=== PATIENT | female | born 1995 | race Hispanic/Latino ===

== ENCOUNTER 2019-01-19 19:58 | Emergency (ER) | payer SELFPAY ==
[2019-01-19 20:27] LABS: #Eosinphils 0.4 thou/uL (0.0-0.7); #Lymphocytes 2.7 thou/uL (1.20-3.40); #Monocytes 0.3 thou/uL (0.11-0.59); #Neutrophils 5.2 thou/uL (1.40-6.50); %Basophils 0.6 % (0.0-1.0); %Eosinophils 4.1 % (0.0-10.0); %Lymphocytes 31.6 % (21.0-51.0); %Monocytes 3.1 % (0.0-10.0); %Neutrophils 60.7 % (42.0-75.0); Hemoglobin 12.5 g/dL (12.0-16.0); Mean Corpuscular HGB CONC 33.7 g/dL (32.0-36.0); Mean Corpuscular Hemoglobin 27.8 pg (27.0-31.0); Mean Corpuscular Volume 82.5 fL (78.0-98.0); Mean Platelet Volume 8.4 fL (7.4-10.4); Platelet Count 324 thou/uL (130-400); RBC Distribution Width 11.9 % (11.5-14.5); White Blood Cell (WBC) Count 8.6 thou/uL (4.8-10.8)
[2019-01-19 20:48] LABS: ALT (SGPT) 450 U/L (8-55); AST (SGOT) 495 U/L (5-34); Albumin 4.5 g/dL (3.5-5.0); Alkaline Phosphatase 96 U/L (40-150); Anion Gap 17 mmol/L (10-20); BUN (Urea Nitrogen) 8 mg/dL (7.0-18.7); Bilirubin, Total 0.3 mg/dL (0.2-1.2); Calc. Creatinine Clearance 0 mL/min (70-130); Calcium 9.8 mg/dL (7.8-10.44); Carbon Dioxide 22 mmol/L (22-29); Chloride 102 mmol/L (98-107); Estimated GFR-MDRD Greater than 90; Globulin 3.7 g/dL (2.4-3.5); Glucose 114 mg/dL (70-105); Potassium 3.8 mmol/L (3.5-5.1); Protein, Total 8.2 g/dL (6.0-8.3); Sodium 137 mmol/L (136-145)
[2019-01-19] MEDS ORDERED: HYDROcodone/Acetaminophen 10/325 mg Tablet ONE (20:48)
[2019-01-19] MEDS ORDERED: Ketorolac Tromethamine 30 MG/ML VIAL ONE (20:48)
[2019-01-19 20:50] LABS: BHCG - Serum Negative (NEGATIVE); Pregs Control Background? CLEAR/WHITE (CLR/WHITE); Pregs Control Bar Appear? YES (CONTROL BAR)
[2019-01-19 21:06] LABS: Bilirubin Negative (Negative); Blood, Urine Large (Negative); Clarity CLEAR (Clear); Glucose, Urine (Dipstick) Negative (Negative); Leukocyte Negative (Negative); Nitrite Negative (Negative); Protein, Urine (Dipstick) Trace mg/dL (Neg-Trace); Specific Gravity, Urine 1.024 (1.002-1.036); Urobilinogen 0.2 mg/dL (0.2-1.0); pH, Urine 5.5 (5.0-9.0)
[2019-01-19 21:07] LABS: Bacteria/HPF None Seen HPF (None Seen); Hyaline Casts/LPF 0-3 HYALINE CAST LPF (0-3 Hyaline); Pathc Cast-AUWi Flag 0.54 (0-2.49); RBC/HPF GREATER THAN 50-TNTC HPF (0-3); Squamous Epithelial 0-3 HPF (0-3); WBC/HPF 0-3 HPF (0-3)
[2019-01-19 21:09] LABS: Pregnancy Test - Urine (BHCG) Negative (Negative); Pregu Control Background? CLEAR/WHITE (CLR/WHITE); Pregu Control Bar Appear? YES (CONTROL BAR); Specific Gravity 1.024 (1.002-1.036)
== END 2019-01-19 21:28 | disposition home or self-care (01) ==
LOC: ERS 19:58
DX: R10.9 Unspecified abdominal pain (principal); R79.89 Other specified abnormal findings of blood chemistry
CPT/HCPCS: 80053; 81003; 81015; 81025; 83690; 84703; 85025; 96374; J1885

== ENCOUNTER 2019-01-21 06:44 | Outpatient (CLI) | payer OTHER ==
--- NOTE | 2019-01-21 07:41 | ULT ---
Gallbladder ultrasound: Multiple grayscale images of right upper quadrant obtained according to protocol. INDICATIONS: Elevated liver function test FINDINGS: No evidence of gallstones. Gallbladder wall thickness is normal. Technologist describes trace echogen ic sludge within the gallbladder. Common bile duct is normal caliber. Liver is echogenic consistent with fatty infiltration. Pancreas is mostly obscured but appears unremarkable as visualized. Right kidney is imaged and appears unremarkable. IMPRESSION: Possible echogenic sludge within the gallbladder. Fatty infiltration of liver.
== END 2019-01-21 06:45 | disposition home or self-care (01) ==
LOC: BICULT 06:44
PROVIDERS: ATTEND Advanced Practice Midwife
DX: R74.8 Abnormal levels of other serum enzymes (principal); K76.0 Fatty (change of) liver, not elsewhere classified
CPT/HCPCS: 76705

== ENCOUNTER 2020-05-09 19:35 | Emergency (ER) | payer SELFPAY ==
--- NOTE | 2020-05-09 20:45 | RAD ---
XR Chest 1 View Portable HISTORY: Cough, chest pain COMPARISON: None FINDINGS: The heart size is normal. The lungs are without focal areas of consolidation, pneumothorax or pleural effusions. IMPRESSION: No radiographic evidence of acute cardiopulmonary process.
[2020-05-09 20:51] LABS: Hemoglobin 6.8 g/dL (12.0-16.0); Mean Corpuscular HGB CONC 34.8 g/dL (32.0-36.0); Mean Corpuscular Hemoglobin 27.3 pg (27.0-31.0); Mean Corpuscular Volume 78.5 fL (78.0-98.0); RBC Distribution Width 19.6 % (11.5-14.5); White Blood Cell (WBC) Count 14.4 thou/uL (4.8-10.8)
[2020-05-09 20:53] LABS: ALT (SGPT) 101 U/L (8-55); AST (SGOT) 94 U/L (5-34); Albumin 3.4 g/dL (3.5-5.0); Alkaline Phosphatase 73 U/L (40-110); Anion Gap 21 mmol/L (10-20); BUN (Urea Nitrogen) 72 mg/dL (7.0-18.7); Bilirubin, Total 2.6 mg/dL (0.2-1.2); Calc. Creatinine Clearance 0 mL/min (70-130); Calcium 7.5 mg/dL (7.8-10.44); Carbon Dioxide 16 mmol/L (22-29); Chloride 102 mmol/L (98-107); Estimated GFR-MDRD 19; Globulin 3.6 g/dL (2.4-3.5); Glucose 191 mg/dL (70-105); Potassium 3.7 mmol/L (3.5-5.1); Sodium 135 mmol/L (136-145)
[2020-05-09 20:57] LABS: Platelet Count 2 thou/uL (130-400); Reflex for Review?? YES
[2020-05-09 21:01] LABS: Anisocytosis SLIGHT = 6-15 cells (100X) (0-5/hpf); Band 16 % (5-11); Eosinophils 1 % (0-10); Lymphocytes 37 % (21-51); MDiff Complete? YES; Monocytes 5 % (0-10); Myelocyte 1 % (0-0); Neutrophil 40 % (42-75); Nucleated RBC 4 % (0); Platelet Morphology Comment Appears Decreased; Polychromasia SLIGHT = 2-3 cells (100X) (0-2/hpf); Schistocytes MARKED= >16 cells (100X) (0-1/hpf); Spherocytes SLIGHT = 1-5 cells (100X) (None Seen)
[2020-05-09 21:49] LABS: Acetaminophen Less than 6.0 mcg/mL (10.0-30.0); Alcohol Less than 10 mg/dL (Less than 10); Lipase 211 U/L (8-78); Salicylate Less than 8.0 mg/dL (15.0-30.0)
[2020-05-09 21:52] LABS: Fibrinogen 474 mg/dL (253-463); INR-International Normal Ratio 1.2; Prothrombin Time 15.4 sec (12.0-14.7)
[2020-05-09 21:53] LABS: PTT 30.5 sec (22.9-36.1)
[2020-05-09 21:56] LABS: FSP-Qualitative ABNORMAL (Normal); FSP-Semiquantitative >=5 & <20 mcg/mL (Less than 5)
[2020-05-09 22:07] LABS: D-Dimer Test 2.91 *mcg/mL (0.27-0.43)
[2020-05-09 22:09] LABS: Platelet Count 2 thou/uL (130-400)
[2020-05-09 22:14] LABS: CKMB 0.9 ng/mL (0-6.6)
[2020-05-09 22:58] LABS: Bilirubin Negative (Negative); Blood, Urine 3+ (Negative); Clarity Turbid (Clear); Glucose, Urine (Dipstick) Normal (Negative); Ketone, Urine Negative (Negative); Leukocyte Negative Leu/uL (Negative); Nitrite Negative (Negative); Protein, Urine (Dipstick) 200 mg/dL (Neg-Trace); Specific Gravity, Urine 1.018 (1.002-1.036); Squamous Epithelial 0-3 HPF (0-3); Urobilinogen Normal mg/dL (Less than 2); pH, Urine 5.5 (5.0-9.0)
[2020-05-09 23:01] LABS: Bacteria/HPF 2+ HPF (None Seen)
[2020-05-09 23:08] LABS: Amphetamine Not Detected (NotDetected); Barbiturates Screen Not Detected (NotDetected); Benzodiazepine Screen Not Detected (NotDetected); Cocaine Metabolite Screen Not Detected (NotDetected); Medtox Control Line Valid? VALID (VALID); Medtox Reader # READER 1; Methadone Not Detected (NotDetected); Methamphetamine Not Detected (NotDetected); Opiate Screen Not Detected (NotDetected); Oxycodone Screen Not Detected (NotDetected); Phencyclidine (PCP) Not Detected (NotDetected); THC/Cannabinoid Screen Not Detected (NotDetected); Tricyclic Screen Not Detected (NotDetected)
[2020-05-09] MEDS ORDERED: methylPREDNISolone Sod Succ/PF 125 MG/2 ML VIAL ONE (23:32)
[2020-05-10] MEDS ORDERED: Lorazepam 2 MG/ML VIAL ONE ×5 (00:23→01:28)
[2020-05-10] MEDS ORDERED: Haloperidol Lactate 5 MG/ML VIAL ONE ×2 (01:19→01:27)
[2020-05-10] MEDS ORDERED: Rocuronium Bromide 10 MG/ML (10ML VIAL) ONE (01:35)
[2020-05-10] MEDS ORDERED: fentaNYL Citrate/PF 2,000 MCG in Sodium Chloride 0.9% 60 ML IV SCH (01:45)
[2020-05-10 02:07] LABS: Analyzer IN Cardio ER; Base Excess (BEa) -10.5 mEq/L (-2.0 to +3.0); Calcium, Ionized (arterial) 0.91 mmol/L (1.12-1.30); Carboxyhemoglobin (COHb) 0.2 gm% (0.0-3.0); O2 Tension (PaO2), arterial 139.2 mmHg (80.0-100.0); Potassium - ABG Lab 3.83 mmol/L (3.70-5.30); pH, Arterial 7.37 (7.35-7.45)
[2020-05-10 02:09] LABS: CO2 Tension 24.8 mmHg (35.0-45.0)
[2020-05-10 02:10] LABS: Hemoglobin (Hb) 4.9 g/dL (12.0-16.0); Puncture Site LRA
--- NOTE | 2020-05-10 07:42 | RAD ---
EXAM: Single view of the chest HISTORY: Status post intubation COMPARISON: 05/09/2020 FINDINGS: Single view of the chest shows a normal sized cardiomediastinal silhouette. An endotrachea l tube is seen with its tip 1.5 cm from the loni. An NG tube is seen in the stomach. There is a retrocardiac air bronchogram which could represent atelectasis or an infiltrate in the left lower lob e. No pleural effusion is seen. No acute osseous abnormality. IMPRESSION: 1. Possible retrocardiac infiltrate 2. Appropriate position of endotracheal tube and NG tube.
--- NOTE | 2020-05-10 08:29 | CT ---
PRELIMINARY REPORT/[facility]/EMERGENCY AFTER HOURS PROCEDURE: EXAM: CT Head Without Intravenous Contrast. CLINICAL HISTORY: Mental status changes, TTP TECHNIQUE: Axial computed tomography images of the head/brain without intravenous contrast. COMPARISON: None provided. FINDINGS: BRAIN: No acute intraparenchymal hemorrhage. No mass lesion. No CT evidence for acute territorial inf arct. No midline shift or extra-axial collection. VENTRICLES: No hydrocephalus. ORBITS: The orbits are unremarkable. SINUSES AND MASTOIDS: Mucous retention cyst or polyp in the left maxillary sinus. The other paranasa l sinuses and mastoid air cells are clear. SOFT TISSUES: No significant facial or scalp soft tissue swelling evident. No radiopaque foreign body is seen. BONES: No acute skull fracture. IMPRESSION: No acute intracranial abnormality. ELECTRONICALLY SIGNED BY: Tai Antonio MD May 10, 2020 2:37:43 AM CDT FINAL REPORT EMERGENT AFTER HOURS CT BRAIN WITHOUT CONTRAST: FINDINGS/IMPRESSION: I agree with the findings and impression given in the preliminary report per [facility] physici an. No evidence of acute intracranial abnormality. POS: [facility]
[2020-05-10 14:26] LABS: Ref Lab Test Ordered ADAMTS13; Reference Lab Name LABCORP
== END 2020-05-10 03:27 | disposition short-term general hospital (02) ==
LOC: ERS 19:35
DX: D64.9 Anemia, unspecified (principal); N17.9 Acute kidney failure, unspecified; M31.1 Thrombotic microangiopathy; Z79.899 Other long term (current) drug therapy
CPT/HCPCS: 31500; 36415; 36430; 51702; 70450; 71045; 80053; 80306; 80307; 81003; 81015; 82140; 82550; 82553; 82805; 83690; 83880; 84443; 84484; 85025; 85049; 85060; 85300; 85362; 85379; 85384; 85610; 85730; 86850; 86900; 86901; 87086; 93005; 94002; 96361; 96365; 96375; 96376; J1630; J2060; J2930; J3010; J3490; P9059